=== PATIENT | female | born 1995 | race Caucasian/White ===

== ENCOUNTER 2017-06-24 19:21 | Emergency (ER) | payer MEDICAID, OTHER ==
--- NOTE | 2017-06-24 20:02 | EDM.PDOC ---
ED HPI GENERAL MEDICAL PROBLEM - General Chief Complaint: Lower Extremity Injury/Pain Stated Complaint: LEFT FOOT INJURY Time Seen by Provider: 06/24/17 19:30 Source of Information: Reports: Patient, Family History Limitations: Reports: No Limitations - History of Present Illness INITIAL COMMENTS - FREE TEXT/NARRATIVE: Justine was "horse playing" with spouse about a half hour ago when she lost balance and fell, striking back of the head and twisting L foot. There was no LOC. There is no reported scalp tenderness. There is residual pain and tenderness of the dorsum of the L foot, worse with ambulation and dorsiflexion of the toes. There is no swelling or deformity. She has tried no meds. Left Anterior Feet Pain Score (Numeric/FACES): 7 - Related Data Allergies Allergy/AdvReac Type Severity Reaction Status Date / Time acetaminophen [From Tylenol] Allergy Hives Verified 06/24/17 19:26 ondansetron HCl Allergy Fever Verified 06/24/17 19:26 [From Zofran (as hydrochloride)] Sulfa (Sulfonamide Allergy Hives Verified 06/24/17 19:26 Antibiotics) Home Meds: Home Meds Budesonide/Formoterol Fumarate [Symbicort 160-4.5 Mcg Inhaler] 2 puff INH QID PRN 06/24/17 [History] Social & Family History - Tobacco Use Smoking Status *Q: Current Every Day Smoker Years of Tobacco use: 10 Packs/Tins Daily: 0.8 Used Tobacco, but Quit: No Second Hand Smoke Exposure: No - Caffeine Use Caffeine Use: Reports: None - Alcohol Use Days Per Week of Alcohol Use: 1 Number of Drinks Per Day: 1 Total Drinks Per Week: 1 - Recreational Drug Use Recreational Drug Use: No - Living Situation & Occupation Living situation: Occupation: Unemployed Review of Systems - Review of Systems Review Of Systems: ROS reveals no pertinent complaints other than HPI. ED EXAM, GENERAL - Physical Exam Exam: See Below Exam Limited By: No Limitations General Appearance: Alert, WD/WN, Anxious, Mild Distress Eye Exam: Bilateral Eye: Normal Inspection, PERRL Ears: Normal External Exam Nose: Normal Inspection Throat/Mouth: Normal Inspection, Normal Lips, Normal Teeth Head: Atraumatic, Normocephalic Neck: Normal Inspection, Supple, Non-Tender, Full Range of Motion Respiratory/Chest: Lungs Clear, Normal Breath Sounds, Chest Non-Tender Cardiovascular: Irregularly Irregular Back Exam: Normal Inspection Extremities: Limited Range of Motion (L foot: limited tenderness of the extensor tendons, aggravated with dorsiflexion and plantar flexion; no kailee deformity of the MT-P joints; no swelling or deformity; hindfoot is nontender ankle intact; CMS intact) Neurological: Alert, Oriented, CN II-XII Intact, No Motor/Sensory Deficits Psychiatric: Normal Affect, Anxious Skin Exam: Warm, Dry Lymphatic: No Adenopathy Course - Vital Signs Text/Narrative:: Justine remained stable at the [facility] ED. No meds were administered. Last Recorded V/S: Last Vital Signs Temp 36.6 C 06/24/17 19:30 Pulse 74 06/24/17 19:30 Resp 18 06/24/17 19:30 BP 108/54 L 06/24/17 19:30 Pulse Ox 98 06/24/17 19:30 Departure - Departure Time of Disposition: 19:45 Disposition: Home, Self-Care 01 Condition: Fair Clinical Impression: Strain of foot, left Qualifiers: Encounter type: initial encounter Qualified Code(s): S96.912A - Strain of unspecified muscle and tendon at ankle and foot level, left foot, initial encounter - Discharge Information Instructions: RICE for Routine Care of Injuries, [id number] Referrals: PCP,None [Primary Care Provider] - Forms: ED Department Discharge Additional Instructions: Take Tylenol for pain. May take up to 4000mg per day (2-Extra strength tabs every 6 hours) for pain control. May also use ibuprofen for pain as well. May take up to 800mg (4 tabs), up to 4x per day. Use ice to help with pain. Elevate the extremity above the level of your heart and try not to bear weight unless absolutely necessary. May return to work 06/26/17. Return if no improvement. - Problem List & Annotations (1) Strain of foot, left SNOMED Code(s): 179536151 Code(s): S96.912A - STRAIN OF UNSP MSL/TND AT ANK/FT LEVEL, LEFT FOOT, INIT Status: Acute Current Visit: Yes Annotation/Comment:: Simple strain to L foot, managed with RICE, NSAIDs, and heel wt bearing. A note for work was provided if needed tomorrow. Qualifiers: Encounter type: initial encounter Qualified Code(s): S96.912A - Strain of unspecified muscle and tendon at ankle and foot level, left foot, initial encounter - Problem List Review Problem List Initiated/Reviewed/Updated: Yes - Assessment/Plan Plan: Follow up with PCP if needed.
== END 2017-06-24 19:55 | disposition home or self-care (01) ==
LOC: FB.ED 19:21
DX: S96.912A Strain of unspecified muscle and tendon at ankle and foot level, left foot, initial encounter (principal); Z88.8 Allergy status to other drugs, medicaments and biological substances; Z88.2 Allergy status to sulfonamides; F17.210 Nicotine dependence, cigarettes, uncomplicated; W19.XXXA Unspecified fall, initial encounter
CPT/HCPCS: 99282; 99283